=== PATIENT | male | born 1975 | race Caucasian/White ===

== ENCOUNTER 2021-03-30 17:44 | Inpatient (IN) | payer MEDICAID, SELFPAY ==
[2021-03-30 17:45] VITALS: BP 161/99; PULSE 100; RESP 16; TEMP 36.6; O2SAT 97; BMI 22.5
--- NOTE | 2021-03-30 18:05 | EX.ED.SAOD ---
HPI History of Present Illness Chief Complaint: Substance Abuse Detail of Chief Complaint: Patient presents with request for detox from alcohol Informant: patient Narrative Narrative: Patient presents with request for detox from alcohol. Last drink was approximately 11:30 PM last night. Patient normally drinks about 10 high alcohol content beers per day. Patient's been drinking at that pace for about a year. He is never gone through detox before. Patient denies feeling suicidal or homicidal. He denies abdominal pain. Denies any other complaints. PFSH PFSH Medical History Alcoholism Anxiety Smoker Home Medications amlodipine [Norvasc] 5 mg PO DAILY 03/30/21 [History Last Taken Unknown] cilostazol 100 mg PO BID 03/30/21 [History Last Taken Unknown] Allergy/AdvReac Type Severity Reaction Status Date / Time morphine Allergy Swelling Verified 03/30/21 17:46 bupropion AdvReac Other Verified 03/30/21 17:46 Surgical History no surgical history Social History Smoking Status: Current every day smoker tobacco type: cigarettes ROS ROS ED Constitutional Constitutional ED: Reports systems reviewed and no addt'l complaints, except as documented; Denies body ache(s), change in weight or chills Eyes Eyes: Denies acute decrease in peripheral vision, change in vision, double vision or loss of vision ENT ENT ED: Reports none; Denies ear pain, lip swelling, loss taste/smell, neck pain, otalgia or sore throat Cardiovascular Cardiovascular: Reports none; Denies abdominal pain, chest pain with activity, leg edema, lightheadedness, palpitations, rapid heart rate or syncope Respiratory/Chest Respiratory/Chest: Reports none; Denies change in mental status, dry cough, dyspnea, hemoptysis, shortness of breath at rest or shortness of breath with exertion Gastrointestinal Gastrointestinal: Reports none; Denies abdominal pain, change in stool character, diarrhea, hematemesis, hematochezia, melena, rectal bleeding or vomiting Genitourinary Genitourinary ED: Reports none; Denies abdominal discomfort, anuria, dysuria, genital pain or polyuria Musculoskeletal Musculoskeletal: Reports none; Denies arthralgias, back pain, difficulty walking, extremity pain, muscle weakness or myalgias Integumentary Reports none; Denies abscess or rash Neurologic Neurologic: Reports none; Denies abnormal gait, confusion, focal weakness, frequent falls, headache(s), loss of vision, numbness, paresthesias, radicular pain, vertigo or weakness Psychiatric Psychiatric: Reports systems reviewed and no addt'l complaints, except as documented and none; Denies behavioral changes, confusion, difficulty concentrating, hallucinations, suicidal ideation, tactile hallucinations or visual hallucinations Endocrine Endocrinology: Denies none, cold intolerance, excessive sweating, fatigue or heat intolerance Hematologic/Lymphatic Hematologic/Lymphatic: Reports none; Denies anemia, easy bleeding or easy bruising Allergic/Immunologic Allergic/Immunologic ED: Denies as per HPI, none, lip swelling, mouth swelling, throat swelling, tongue swelling or hives EXAM Physical Exam Const Vital Signs: 03/30/21 17:45 03/30/21 18:35 Temperature 97.9 F Temperature Source Temporal Pulse Rate 100 84 Respiratory Rate 16 20 H Blood Pressure 161/99 H 131/91 H Blood Pressure Mean 119 104 Pulse Ox 97 97 Oxygen Delivery Method Room Air Room Air Positive well nourished and well developed General Appearance ED: well developed and NAD HEENT Reports TM's clear and moist mucous membranes normocephalic and atraumatic; Negative for trauma or tenderness Tympanic Membrane ED: Yes TM's clear Eyes PERRL and EOMs intact bilaterally General Eye ED: Negative for pale conjunctiva or scleral icterus Neck no lymphadenopathy, supple and no JVD General: Negative for tenderness Chest Wall inspection of chest normal and palpation of chest normal Chest: Negative for tenderness Resp normal respiratory effort and clear to auscultation bilaterally Effort and Inspection: Negative for respiratory distress or pain with movement Auscultation: Negative for rhonchi, wheezes or diminished lung sounds Cardio regular rate, regular rhythm, S1 normal heart sound, S2 normal heart sound and no murmurs Peripheral Pulses: pulses 2+ throughout GI normal to inspection, nondistended, normoactive bowel sounds, soft to palpation, non-tender, non-distended and no masses Back/Spine no CVA tenderness and no thoracic nor lumbar tenderness Extremity normal to inspection General Extremety ED: Negative for edema General Extremity: Negative for edema Neuro oriented x3, CN's II-XII intact bilaterally, no sensory deficits noted and gait normal Sensorium / Orientation: awake, alert, oriented to person, oriented to place and oriented to time Motor Exam: strength 5/5 throughout and strength abnormal Psych mental status grossly normal Skin no rashes or lesions noted and no wounds MDM MDM MDM Narrative Medical decision making narrative: Case discussed with hospitalist will evaluate patient for admission for alcohol detox Lab Data Attestation: I reviewed the patient's lab results. Labs: Laboratory Results - last 24 hr 03/30/21 03/30/21 03/30/21 18:18 18:29 18:29 WBC 12.2 H RBC 5.06 Hgb 16.5 Hct 47.9 MCV 94.7 H MCH 32.6 H MCHC 34.4 RDW Std Deviation 44.6 H RDW Coeff of Abbi 12.8 Plt Count 290 MPV 9.0 Immature Gran % (Auto) 0.300 Neut % (Auto) 81.4 H Lymph % (Auto) 10.9 L [place] % (Auto) 6.5 Eos % (Auto) 0.5 Baso % (Auto) 0.4 Absolute Neuts (auto) 10.0 H Absolute Lymphs (auto) 1.33 Nucleated RBC % 0 Sodium 138 Potassium 4.1 Chloride 105 Carbon Dioxide 25.0 Anion Gap 8 BUN 7 Creatinine 0.82 Estim Creat Clear Calc 130.76 Est GFR (MDRD) Af Amer 130 Est GFR (MDRD) Non-Af 107 BUN/Creatinine Ratio 8.6 L Glucose 98 Calcium 9.3 Total Bilirubin 0.50 AST 27 ALT 25 Alkaline Phosphatase 86 Total Protein 8.5 H Albumin 3.8 Globulin 4.7 H Albumin/Globulin Ratio 0.8 L Urine Opiates Screen NEGATIVE Urine Methadone Screen NEGATIVE Ur Barbiturates Screen NEGATIVE Ur Phencyclidine Scrn NEGATIVE Ur Amphetamines Screen NEGATIVE U Methamphetamin-MDMA NEGATIVE U Benzodiazepines Scrn NEGATIVE Urine Cocaine Screen NEGATIVE U Cannabinoids Screen NEGATIVE Ur Drug Screen Comment Discharge Plan Triage Chief Complaint: Substance Abuse ED Provider: Marie Bass Dx/Rx/DC Orders Clinical Impression: Alcohol withdrawal, Withdrawn from alcohol detoxification program Prescriptions: No Action cilostazol 100 mg Tablet 100 mg PO BID RF: 0 amlodipine [Norvasc] 5 mg Tablet 5 mg PO DAILY RF: 0 Referrals: MOE DUVALL [Other] Disposition Disposition: Acute Care Hospital [facility]
[2021-03-30 18:35] VITALS: BP 131/91; PULSE 84; RESP 20; O2SAT 97
[2021-03-30 18:43] LABS: Amphetamine Urine VISTA NEGATIVE (<1000 ng/mL); Barbiturate Urine VISTA NEGATIVE (< 200 ng/mL); Benzodiazepine Urine VISTA NEGATIVE (< 200 ng/mL); Cocaine Urine VISTA NEGATIVE (< 300 ng/mL); Ecstacy Urine VISTA NEGATIVE (< 500 ng/mL); Methadone Urine VISTA NEGATIVE (< 300 ng/mL); PCP Urine VISTA NEGATIVE (< 25 ng/mL); THC Urine VISTA NEGATIVE (< 50 ng/mL); Vista UDS pH Range 5
[2021-03-30 18:53] LABS: Absolute Lymphocyte Count 1.33 X10^3/uL (0.83-4.51); Basophil# 0.05 X10^3/uL; Basophil% 0.4 % (0-1); Eosinophil# 0.06 X10^3/uL; Eosinophils% 0.5 % (0-5); Hematocrit 47.9 % (40-54); Hemoglobin 16.5 g/dL (13.0-16.5); Lymphocyte # 1.33 X10^3/ul (0.83-4.51); Lymphocyte % 10.9 % (19-41); Mean Corp Hgb Conc 34.4 g/dL (32-36); Mean Corpuscular Hgb 32.6 pg (27.0-32.0); Mean Corpuscular Volume 94.7 fL (80-94); Monocyte% 6.5 % (0-10); NRBC Flagged by Analyzer 0 % (0-5); Neutrophil # 9.95 X10^3/uL (2.7-7.7); Neutrophil % 81.4 % (47-70); Platelet Count 290 K/mm3 (150-450); RBC Distribution Width CV 12.8 % (11.6-14.6); RBC Distribution Width SD 44.6 fl (35.1-43.9); Red Blood Count 5.06 M/mm3 (4.6-6.2); White Blood Count 12.2 K/mm3 (4.4-11.0)
[2021-03-30] MEDS: 0.9% Normal Saline 1,000 ML 150 ML IV (19:01)
[2021-03-30 19:08] LABS: ALB/GLOB Ratio 0.8 RATIO (0.9-2.4); AST(SGOT) 27 U/L (15-37); Alanine Aminotransfer ALT/SGPT 25 U/L (16-61); Albumin, Serum 3.8 g/dL (3.2-5.0); Alkaline Phosphatase 86 U/L (45-117); Anion Gap 8 (5-15); BUN 7 mg/dL (7-18); BUN/Creat Ratio 8.6 RATIO (10-20); Calcium,Total 9.3 mg/dL (8.5-10.1); Chloride 105 mmol/L (98-107); Creatinine, Serum 0.82 mg/dL (0.70-1.30); EST Glomerular Filtration Rate 107 mL/min (>60); Est Glom Filt Rate - Afr Amer 130 mL/min (>60); Estimated Creatinine Clearance 130.76 ml/min; Globulin 4.7 g/dL (2.2-4.2); Glucose 98 mg/dL (74-106); Potassium 4.1 mmol/L (3.5-5.1); Protein, Total 8.5 g/dL (6.4-8.2); Sodium Level 138 mmol/L (136-145)
--- NOTE | 2021-03-30 19:26 | HP.PCM.HOS_ITS ---
HPI - General General Date of Admission: 03/30/21 Date of Service: 03/30/21 Chief Complaint: Request for medical stabilization for alcohol withdrawal HPI Narrative JIMMY JOE, is a 46 M who presents with the above. Patient admits to drinking 10 high content alcohol beer daily. He has never been through detox. He decided that it is enough. He denies any symptoms at the time of being seen. He denied any fever or chills no tremors or restlessness. His last drink of alcohol was the night before. His vitals are stable. Admitting alcohol level is less than 3 PFSH Medical History Alcoholism Anxiety History of malignant neoplasm of skin Smoker Home Medications amlodipine [Norvasc] 5 mg PO DAILY 03/30/21 [History Last Taken Unknown] cilostazol 100 mg PO BID 03/30/21 [History Last Taken Unknown] Allergy/AdvReac Type Severity Reaction Status Date / Time morphine Allergy Swelling Verified 03/30/21 17:46 bupropion AdvReac Other Verified 03/30/21 17:46 Family History no significant family his no significant family history Surgical History (Updated 03/30/21 @ 20:[address] Feli Kee MD) Status post surgical removal of malignant neoplasm of skin Surgical History no surgical history Social History (Updated 03/30/21 @ 20:[address] Feli Kee MD) household members: significant other Smoking Status: Current every day smoker tobacco type: cigarettes alcohol intake: current substance use type: does not use ROS ROS Narrative Constitutional:Denies: Anorexia, Chills, Fever, Night Sweats, Weight Change Eyes: Denies: Blurred vision, Cataracts, Conjunctivae Inflammation, Pain, Redness, Vision Change HEENT: Denies: Difficulty Hearing, Difficulty Swallowing, Head Aches, Hearing Changes, Sinus Congestion, Sinus Drainage Cardiovascular: Denies: Chest Pain, Orthopnea, Palpitations Respiratory: Denies: Cough, Shortness of breath at rest, Sputum production Gastrointestinal: Denies: Abdominal Pain, Nausea, Vomiting Genitourinary: Denies: Dysuria Musculoskeletal: Denies: Joint Pain, Joint stiffness, Joint swelling, Joint Tenderness Skin: Denies: Rash, Wounds Neurological: Denies: Numbness, Tingling, Focal weakness Vital Signs Vital Signs Vital Signs: 03/30/21 17:45 03/30/21 18:35 Temperature 97.9 F Temperature Source Temporal Pulse Rate 100 84 Respiratory Rate 16 20 H Blood Pressure 161/99 H 131/91 H Blood Pressure Mean 119 104 Pulse Ox 97 97 Oxygen Delivery Method Room Air Room Air Weight Weight: 83.915 kg Body Mass Index (BMI) 22.5 Physical Exam Narrative Physical exam: General: Alert, Oriented x3, Cooperative, no apparent distress, well developed HEENT: Atraumatic Oral: Moist Mucosa Neck: Supple Lungs: Clear to auscultation Cardiovascular: HS I+II, regular, no murmurs Abdomen: Bowel Sounds Present, Soft, Non Tender Extremities: No edema Results Lab / Micro Data Result Diagrams: 03/30/21 18:29 03/30/21 18:29 Labs: Laboratory Results - last 24 hr 03/30/21 18:18: Urine Opiates Screen NEGATIVE, Urine Methadone Screen NEGATIVE, Ur Barbiturates Screen NEGATIVE, Ur Phencyclidine Scrn NEGATIVE, Ur Amphetamines Screen NEGATIVE, U Methamphetamin-MDMA NEGATIVE, U Benzodiazepines Scrn NEGATIVE, Urine Cocaine Screen NEGATIVE, U Cannabinoids Screen NEGATIVE, Ur Drug Screen Comment 03/30/21 18:29: WBC 12.2 H, RBC 5.06, Hgb 16.5, Hct 47.9, MCV 94.7 H, MCH 32.6 H , MCHC 34.4, RDW Std Deviation 44.6 H, RDW Coeff of Abbi 12.8, Plt Count 290, MPV 9.0, Immature Gran % (Auto) 0.300, Neut % (Auto) 81.4 H, Lymph % (Auto) 10.9 L, [place] % (Auto) 6.5, Eos % (Auto) 0.5, Baso % (Auto) 0.4, Absolute Neuts (auto) 10.0 H, Absolute Lymphs (auto) 1.33, Nucleated RBC % 0 03/30/21 18:29: Sodium 138, Potassium 4.1, Chloride 105, Carbon Dioxide 25.0, Anion Gap 8, BUN 7, Creatinine 0.82, Estim Creat Clear Calc 130.76, Est GFR (MDRD) Af Amer 130, Est GFR (MDRD) Non-Af 107, BUN/Creatinine Ratio 8.6 L, Glucose 98, Calcium 9.3, Total Bilirubin 0.50, AST 27, ALT 25, Alkaline Phospha tase 86, Total Protein 8.5 H, Albumin 3.8, Globulin 4.7 H, Albumin/Globulin Ratio 0.8 L Assessment & Plan Assessment/Plan (1) Alcohol withdrawal: (2) Raynauds disease: (3) Behcet's disease: (4) Nicotine dependence: PLAN: 1. Request for medical stabilization from chronic alcohol abuse Admit to [facility], monitor on alcohol withdrawal protocol 2. Nicotine dependence, advised to quit, on replacement 3. Behcet's disease/Raynaud's disease, continue amlodipine, cilostazol 4. DVT prophylaxis; low risk, continue early ambulation Charges/Coding Visit Charges Inpatient E&M: 57909 Init Hosp L2
[2021-03-30 20:01] LABS: Alcohol, Blood (Medical)-Serum < 3.0 mg/dL
[2021-03-30 20:11] VITALS: BP 148/90; PULSE 78; RESP 18; TEMP 36.6; O2SAT 95
--- NOTE | 2021-03-30 20:13 | PCS.PANDOC ---
PANDEMIC DOCUMENTATION INITIATED: Date: 03/30/2021 Time: 2012
[2021-03-30 20:20] VITALS: BMI 22.4
[2021-03-30 20:26] VITALS: BP 128/97; PULSE 73; RESP 18; TEMP 36.2; O2SAT 96
[2021-03-30] MEDS: Phenobarbital 32.4 MG Tablet 64.8 MG PO ×2 (20:40→23:30)
[2021-03-30] MEDS: Cilostazol 50 MG Tablet 100 MG PO (21:00)
[2021-03-30] MEDS: hydrOXYzine PAM 25 MG Capsule 50 MG PO (23:30)
[2021-03-30] MEDS: traZODone 100 MG Tablet PO (23:30)
[2021-03-31] MEDS: Phenobarbital 32.4 MG Tablet 64.8 MG PO ×5 (04:57→20:33)
[2021-03-31 05:02] VITALS: BP 119/78; PULSE 74; RESP 16; TEMP 36.1; O2SAT 98
--- NOTE | 2021-03-31 08:51 | PCM.PN.HOSP ---
Subjective Subjective Patient is a 46-year-old gentleman with history of chronic alcohol dependence admitted for medical stabilization Objective Data Objective Data Vital Signs: Vital Signs Temp Pulse Resp BP Pulse Ox 96.9 F L 74 16 119/78 98 03/31/21 05:02 03/31/21 05:02 03/31/21 05:02 03/31/21 05:02 03/31/21 05:02 Oxygen Delivery Method Room Air Weight: 83.552 kg Body Mass Index (BMI) 22.4 Intake & Output: Intake and Output for Last 24 Hours 03/29/21 03/30/21 03/31/21 23:59 23:59 23:59 Intake Total 255 / 255 Balance 255 / 255 Lab / Micro Data Result Diagrams: 03/30/21 18:29 03/30/21 18:29 Labs: Laboratory Results - last 24 hr 03/30/21 18:18: Urine Opiates Screen NEGATIVE, Urine Methadone Screen NEGATIVE, Ur Barbiturates Screen NEGATIVE, Ur Phencyclidine Scrn NEGATIVE, Ur Amphetamines Screen NEGATIVE, U Methamphetamin-MDMA NEGATIVE, U Benzodiazepines Scrn NEGATIVE, Urine Cocaine Screen NEGATIVE, U Cannabinoids Screen NEGATIVE, Ur Drug Screen Comment 03/30/21 18:29: WBC 12.2 H, RBC 5.06, Hgb 16.5, Hct 47.9, MCV 94.7 H, MCH 32.6 H, MCHC 34.4, RDW Std Deviation 44.6 H, RDW Coeff of Abbi 12.8, Plt Count 290, MPV 9.0, Immature Gran % (Auto) 0.300, Neut % (Auto) 81.4 H, Lymph % (Auto) 10.9 L, [place] % (Auto) 6.5, Eos % (Auto) 0.5, Baso % (Auto) 0.4, Absolute Neuts (auto) 10.0 H, Absolute Lymphs (auto) 1.33, Nucleated RBC % 0 03/30/21 18:29: Sodium 138, Potassium 4.1, Chloride 105, Carbon Dioxide 25.0, Anion Gap 8, BUN 7, Creatinine 0.82, Estim Creat Clear Calc 130.76, Est GFR (MDRD) Af Amer 130, Est GFR (MDRD) Non-Af 107, BUN/Creatinine Ratio 8.6 L, Glucose 98, Calcium 9.3, Total Bilirubin 0.50, AST 27, ALT 25, Alkaline Phosphatase 86, Total Protein 8.5 H, Albumin 3.8, Globulin 4.7 H, Albumin/Globulin Ratio 0.8 L 03/30/21 18:29: Ethyl Alcohol < 3.0 Physical Exam Narrative GENERAL: cooperative HEENT: Atraumatic; EYES; Anicteric, Normal Conjunctiva NECK; supple, normal thyroid, RESPIRATORY: Diminished to auscultation CARDIOVASCULAR: Regular S1 S2, GI: soft, normoactive bowel sounds, : No Renal angle tenderness; EXTREMITIES: No edema, no clubbing, MUSCULOSKELETAL: no muscle waisting NEURO: Awake; no lateralizing signs. SKIN: No Rash PSYCH; Flat affect Assessment & Plan Assessment/Plan (1) Alcohol withdrawal: (2) Raynauds disease: (3) Behcet's disease: (4) Nicotine dependence: PLAN: Patient is a 46-year-old gentleman with history of chronic alcohol dependence admitted for medical stabilization 1. Chronic alcohol dependence ?With significant risk for withdrawal admitted to a regular nursing floor currently undergoing medical stabilization and phenobarb taper 2. Raynaud's disease ?Patient is on amlodipine did continue 3. Behcet's disease ?Per history 4. Tobacco dependence - Counseled on cessation, offered nicotine patch for tobacco cravings 5. DVT prophylaxis ?Low risk did encourage early ambulation Charges/Coding Visit Charges Inpatient E&M: 49250 Subs Hosp L2
[2021-03-31 09:10] VITALS: BP 117/71; PULSE 61; RESP 18; TEMP 36.6; O2SAT 94
[2021-03-31] MEDS: Thiamine Hydrochloride 100 MG Tablet PO (09:15)
[2021-03-31] MEDS: amLODIPine 5 MG Tablet PO (09:15)
[2021-03-31] MEDS: Folic Acid 1 MG Tablet PO (09:15)
[2021-03-31] MEDS: Cilostazol 50 MG Tablet 100 MG PO ×2 (09:15→23:37)
[2021-03-31 13:08] VITALS: BP 116/63; PULSE 84; RESP 15; TEMP 36.9; O2SAT 94
--- NOTE | 2021-03-31 15:38 | CASEMGMT ---
Pt's girlfriend Elizabeth Enciso([phone]) called in to the nurse's station to ask more information about the program. She states she knows her boyfriend is here in room 210. DEWAYNE spoke w/Elizabeth, explained briefly the program, and that patients generally speaking are here for three days, and the treatment navigator assists with setting up aftercare. Elizabeth inquired if patients are ever kept longer than 3 days. DEWAYNE explained that sometimes patients are here longer than three days, it depends on their symptoms. She states she is a nurse and works second shift supervisor, is working both and Wednesday nights, and is hoping pt will not be discharged in that time frame as he would be home alone and she is his only family. She also asked if we can assist with having pt sign a financial POA so she can help pt get his car tags renewed. DEWAYNE explained will pass on this information to the treatment navigator. DEWAYNE reminded her that due to HIPAA SW cannot share any information but will pass on the information. Elizabeth states understanding. DEWAYNE called Tee treatment navigator, passed on the above information. KASH Mckeon
[2021-03-31 16:48] VITALS: BP 118/69; PULSE 76; RESP 16; TEMP 35.9; O2SAT 94
[2021-03-31] MEDS: Mag Hydrox/Al Hydrox/Simeth 30 ML UDC PO (18:50)
[2021-03-31 23:35] VITALS: BP 127/81; PULSE 79; RESP 16; TEMP 36.5; O2SAT 93
[2021-03-31] MEDS: 0.9% Saline Lock 10 ML Syringe IV (23:37)
[2021-04-01] MEDS: Phenobarbital 32.4 MG Tablet 64.8 MG PO ×6 (01:12→20:21)
[2021-04-01 04:48] VITALS: BP 116/81; PULSE 73; RESP 16; TEMP 36.6; O2SAT 97
[2021-04-01 05:50] LABS: Absolute Lymphocyte Count 1.73 X10^3/uL (0.83-4.51); Basophil# 0.03 X10^3/uL; Basophil% 0.5 % (0-1); Eosinophil# 0.15 X10^3/uL; Eosinophils% 2.7 % (0-5); Hematocrit 42.5 % (40-54); Hemoglobin 14.3 g/dL (13.0-16.5); Lymphocyte # 1.73 X10^3/ul (0.83-4.51); Lymphocyte % 30.6 % (19-41); Mean Corp Hgb Conc 33.6 g/dL (32-36); Mean Corpuscular Hgb 31.9 pg (27.0-32.0); Mean Corpuscular Volume 94.9 fL (80-94); Mean Platelet Vol. 9.2 fl (6.2-12.0); Monocyte# 0.72 X10^3/uL; Monocyte% 12.7 % (0-10); NRBC Flagged by Analyzer 0 % (0-5); Neutrophil # 3.02 X10^3/uL (2.7-7.7); Neutrophil % 53.3 % (47-70); Platelet Count 240 K/mm3 (150-450); RBC Distribution Width CV 12.2 % (11.6-14.6); RBC Distribution Width SD 42.8 fl (35.1-43.9); Red Blood Count 4.48 M/mm3 (4.6-6.2); White Blood Count 5.7 K/mm3 (4.4-11.0)
[2021-04-01 06:15] LABS: Anion Gap 5 (5-15); BUN 13 mg/dL (7-18); BUN/Creat Ratio 16.1 RATIO (10-20); Calcium,Total 8.7 mg/dL (8.5-10.1); Chloride 105 mmol/L (98-107); Creatinine, Serum 0.81 mg/dL (0.70-1.30); EST Glomerular Filtration Rate 108 mL/min (>60); Est Glom Filt Rate - Afr Amer 131 mL/min (>60); Glucose 109 mg/dL (74-106); Magnesium 2.1 mg/dL (1.6-2.6); Sodium Level 137 mmol/L (136-145)
--- NOTE | 2021-04-01 07:19 | PCM.PN.HOSP ---
Subjective Subjective Patient seen symptoms appear well controlled Objective Data Objective Data Vital Signs: Vital Signs Temp Pulse Resp BP Pulse Ox 97.8 F 73 16 116/81 H 97 04/01/21 04:48 04/01/21 04:48 04/01/21 04:48 04/01/21 04:48 04/01/21 04:48 Oxygen Delivery Method Room Air Weight: 83.552 kg Body Mass Index (BMI) 22.4 Intake & Output: Intake and Output for Last 24 Hours 03/30/21 03/31/21 04/01/21 23:59 23:59 23:59 Intake Total 255 / 255 Balance 255 / 255 Lab / Micro Data Result Diagrams: 04/01/21 05:30 04/01/21 05:30 Labs: Laboratory Results - last 24 hr 04/01/21 05:30: WBC 5.7, RBC 4.48 L, Hgb 14.3, Hct 42.5, MCV 94.9 H, MCH 31.9, MCHC 33.6, RDW Std Deviation 42.8, RDW Coeff of Abbi 12.2, Plt Count 240, MPV 9.2, Immature Gran % (Auto) 0.200, Neut % (Auto) 53.3, Lymph % (Auto) 30.6, [place] % (Auto) 12.7 H, Eos % (Auto) 2.7, Baso % (Auto) 0.5, Absolute Neuts (auto) 3.0, Absolute Lymphs (auto) 1.73, Nucleated RBC % 0 04/01/21 05:30: Sodium 137, Potassium 4.0, Chloride 105, Carbon Dioxide 27.0, Anion Gap 5, BUN 13, Creatinine 0.81, Estim Creat Clear Calc 131.80, Est GFR (MDRD) Af Amer 131, Est GFR (MDRD) Non-Af 108, BUN/Creatinine Ratio 16.1, Glucose 109 H, Calcium 8.7, Magnesium 2.1 Physical Exam Narrative GENERAL: cooperative HEENT: Atraumatic; EYES; Anicteric, Normal Conjunctiva NECK; supple, normal thyroid, RESPIRATORY: Diminished to auscultation CARDIOVASCULAR: Regular S1 S2, GI: soft, normoactive bowel sounds, : No Renal angle tenderness; EXTREMITIES: No edema, no clubbing, MUSCULOSKELETAL: no muscle waisting NEURO: Awake; no lateralizing signs. SKIN: No Rash PSYCH; Flat affect Assessment & Plan Assessment/Plan (1) Alcohol withdrawal: (2) Raynauds disease: (3) Behcet's disease: (4) Nicotine dependence: PLAN: Patient is a 46-year-old gentleman with history of chronic alcohol dependence admitted for medical stabilization 1. Chronic alcohol dependence ?With significant risk for withdrawal admitted to a regular nursing floor currently undergoing medical stabilization and phenobarb taper ?04/01/2021; patient symptoms well controlled on current phenobarb taper. Plan is for possible discharge in a.m. if patient continues on current trajectory 2. Raynaud's disease ?Patient is on amlodipine did continue 3. Behcet's disease ?Per history 4. Tobacco dependence - Counseled on cessation, offered nicotine patch for tobacco cravings 5. DVT prophylaxis ?Low risk did encourage early ambulation Charges/Coding Visit Charges Inpatient E&M: 67054 Subs Hosp L2
[2021-04-01 07:52] VITALS: BP 121/74; PULSE 70; RESP 18; TEMP 36.4; O2SAT 95
[2021-04-01] MEDS: Thiamine Hydrochloride 100 MG Tablet PO (07:58)
[2021-04-01] MEDS: Folic Acid 1 MG Tablet PO (07:58)
--- NOTE | 2021-04-01 11:04 | ADDICTION ---
This manual writer met with PT to conduct ASAM, MSE, AUDIT assessments and to plan for d/c. PT A+Ox4 and participated actively. All assessments completed, faxed to [facility] and placed in PT's chart. PT plans to f/u with individual counselor at [facility] for follow-up counseling services. PT did not indicate a need for transportation post d/c from [facility].
[2021-04-01] MEDS: Cilostazol 50 MG Tablet 100 MG PO ×2 (11:32→20:21)
[2021-04-01] MEDS: amLODIPine 5 MG Tablet PO (11:32)
[2021-04-01 12:33] VITALS: BP 119/60; PULSE 71; RESP 16; TEMP 36.2; O2SAT 97
[2021-04-01] MEDS: Mag Hydrox/Al Hydrox/Simeth 30 ML UDC PO (14:52)
--- NOTE | 2021-04-01 15:03 | NURSING ---
assisted patient to call case folder [place] at [facility] for dc planning.
[2021-04-01 16:39] VITALS: BP 113/71; PULSE 76; RESP 18; TEMP 36.6; O2SAT 97
[2021-04-01 20:22] VITALS: BP 115/79; PULSE 66; RESP 18; TEMP 36.6; O2SAT 93
[2021-04-02] MEDS: Phenobarbital 32.4 MG Tablet 64.8 MG PO ×3 (00:33→10:06)
[2021-04-02] MEDS: traZODone 100 MG Tablet PO (00:36)
[2021-04-02 02:34] VITALS: BP 114/46; PULSE 71; RESP 16; TEMP 36.7; O2SAT 94
[2021-04-02 06:15] LABS: Absolute Lymphocyte Count 1.56 X10^3/uL (0.83-4.51); Absolute Neutrophil Count 2.5 X10^3/uL (2.0-7.7); Basophil# 0.04 X10^3/uL; Basophil% 0.8 % (0-1); Eosinophil# 0.14 X10^3/uL; Eosinophils% 2.9 % (0-5); Hematocrit 44.6 % (40-54); Hemoglobin 15.1 g/dL (13.0-16.5); Lymphocyte # 1.56 X10^3/ul (0.83-4.51); Lymphocyte % 32.2 % (19-41); Mean Corp Hgb Conc 33.9 g/dL (32-36); Mean Corpuscular Hgb 32.2 pg (27.0-32.0); Mean Corpuscular Volume 95.1 fL (80-94); Mean Platelet Vol. 9.3 fl (6.2-12.0); Monocyte# 0.59 X10^3/uL; Monocyte% 12.2 % (0-10); NRBC Flagged by Analyzer 0 % (0-5); Neutrophil % 51.5 % (47-70); Platelet Count 238 K/mm3 (150-450); RBC Distribution Width CV 12.3 % (11.6-14.6); RBC Distribution Width SD 42.9 fl (35.1-43.9); Red Blood Count 4.69 M/mm3 (4.6-6.2); White Blood Count 4.9 K/mm3 (4.4-11.0)
[2021-04-02 06:45] LABS: Anion Gap 6 (5-15); BUN 14 mg/dL (7-18); BUN/Creat Ratio 15.9 RATIO (10-20); Calcium,Total 8.7 mg/dL (8.5-10.1); Chloride 106 mmol/L (98-107); Creatinine, Serum 0.88 mg/dL (0.70-1.30); EST Glomerular Filtration Rate 98 mL/min (>60); Est Glom Filt Rate - Afr Amer 119 mL/min (>60); Estimated Creatinine Clearance 121.32 ml/min; Glucose 95 mg/dL (74-106); Potassium 4.2 mmol/L (3.5-5.1); Sodium Level 139 mmol/L (136-145)
--- NOTE | 2021-04-02 07:26 | PCM.DC.SUM ---
Providers Date of Admission: 03/30/21 Primary Care Physician: MOE DUVALL Reason For Visit: REQUEST FOR DETOX Diagnosis Discharge Diagnosis (1) Alcohol withdrawal: Status: Acute Code(s): F10.239 - Alcohol dependence with withdrawal, unspecified (2) Raynauds disease: Status: Acute Code(s): I73.00 - Raynaud's syndrome without gangrene (3) Nicotine dependence: Status: Acute Code(s): F17.200 - Nicotine dependence, unspecified, uncomplicated (4) Buerger disease: Status: Acute Code(s): I73.1 - Thromboangiitis obliterans [Buerger's disease] Medications at Discharge Home Medications amlodipine [Norvasc] 5 mg PO DAILY 03/30/21 cilostazol 100 mg PO BID 03/30/21 nicotine [Nicoderm CQ] 1 patch TRANSDERMAL DAILY #28 ea 04/02/21 Hospital Course Summary of Care Provided Minutes Spent on Discharge: 35 Hospital Course: Patient is a 46-year-old gentleman with history of chronic alcohol dependence admitted for medical stabilization 1. Chronic alcohol dependence ?With significant risk for withdrawal admitted to a regular nursing floor currently undergoing medical stabilization and phenobarb taper ?04/01/2021; patient symptoms well controlled on current phenobarb taper. Plan is for possible discharge in a.m. if patient continues on current trajectory ?04/22/2021; stable for discharge 2. Raynaud's disease ?Patient is on amlodipine did continue 3. Buerger's disease ?Per history 4. Tobacco dependence - Counseled on cessation, offered nicotine patch for tobacco cravings 5. DVT prophylaxis ?Low risk did encourage early ambulation Physical Exam Narrative GENERAL: cooperative HEENT: Atraumatic; EYES; Anicteric, Normal Conjunctiva NECK; supple, normal thyroid, RESPIRATORY: Diminished to auscultation CARDIOVASCULAR: Regular S1 S2, GI: soft, normoactive bowel sounds, : No Renal angle tenderness; EXTREMITIES: No edema, no clubbing, MUSCULOSKELETAL: no muscle waisting NEURO: Awake; no lateralizing signs. SKIN: No Rash PSYCH; Flat affect Weight / BMI Weight Weight: 83.552 kg Body Mass Index (BMI) 22.4 ABG / Lab / Microbiology Data Result Diagrams: 04/02/21 05:50 04/02/21 05:50 Laboratory: Laboratory Results - last 24 hr 04/02/21 05:50: WBC 4.9, RBC 4.69, Hgb 15.1, Hct 44.6, MCV 95.1 H, MCH 32.2 H, MCHC 33.9, RDW Std Deviation 42.9, RDW Coeff of Abbi 12.3, Plt Count 238, MPV 9.3, Immature Gran % (Auto) 0.400, Neut % (Auto) 51.5, Lymph % (Auto) 32.2, [place] % (Auto) 12.2 H, Eos % (Auto) 2.9, Baso % (Auto) 0.8, Absolute Neuts (auto) 2.5, Absolute Lymphs (auto) 1.56, Nucleated RBC % 0 04/02/21 05:50: Sodium 139, Potassium 4.2, Chloride 106, Carbon Dioxide 27.0, Anion Gap 6, BUN 14, Creatinine 0.88, Estim Creat Clear Calc 121.32, Est GFR (MDRD) Af Amer 119, Est GFR (MDRD) Non-Af 98, BUN/Creatinine Ratio 15.9, Glucose 95, Calcium 8.7 D/C Instructions Discharge Diet: No restrictions Discharge Activity: Return to Normal Activity Call your doctor if you observe: Fever of 101 or Higher, Shortness of breath, Fainting spells and Chest pain Meaningful Use Info Meaningful Use Diagnoses (Choose all that apply): None applicable Discharge Plan Admission Admit Date/Time: 03/30/21 19:22 Attending Provider: Trino Colunga Discharge Orders/Prescriptions Prescriptions: New nicotine [Nicoderm CQ] 21 mg/24 hr patch 24 hour 1 patch transdermal DAILY Qty: 28 RF: 0 Continued cilostazol 100 mg Tablet 100 mg PO BID RF: 0 amlodipine [Norvasc] 5 mg Tablet 5 mg PO DAILY RF: 0 Referrals / Follow Up: MOE DUVALL [Other] MOE DUVALL [Other] Disposition Disposition (needs filled in before D/C Order can be placed): Home, Self Care Charges/Coding Visit Charges Inpatient E&M: 52700 Disch Hosp
[2021-04-02] MEDS: amLODIPine 5 MG Tablet PO (09:59)
[2021-04-02] MEDS: Cilostazol 50 MG Tablet 100 MG PO (09:59)
[2021-04-02] MEDS: Thiamine Hydrochloride 100 MG Tablet PO (09:59)
[2021-04-02] MEDS: Folic Acid 1 MG Tablet PO (09:59)
--- NOTE | 2021-04-02 10:55 | ADDICTION ---
This worker arranged transportation upon discharge through [facility]. They will call nurses station once arrived.
[2021-04-02] MEDS: Mag Hydrox/Al Hydrox/Simeth 30 ML UDC PO (11:14)
[2021-04-02 11:43] VITALS: BP 117/76; PULSE 77; RESP 18; TEMP 36.2; O2SAT 94
== END 2021-04-02 12:47 | disposition home or self-care (01) | DRG 775 ==
LOC: ED 19:27 → MS2 19:53
PROVIDERS: Admitting Provider Internal Medicine; Emergency Provider Emergency Medicine; Visit Provider Internal Medicine
DX: F10.239 Alcohol dependence with withdrawal, unspecified (principal); I73.1 Thromboangiitis obliterans [Buerger's disease]; I73.00 Raynaud's syndrome without gangrene; Z23 Encounter for immunization; F17.210 Nicotine dependence, cigarettes, uncomplicated; Z79.899 Other long term (current) drug therapy; Z85.828 Personal history of other malignant neoplasm of skin
CPT/HCPCS: 36415; 80048; 80053; 80307; 82077; 83735; 85025; 99284; J7030; 90686; A4216